=== PATIENT | male | born 1990 | race African-American/Black ===

== ENCOUNTER 2019-05-22 07:27 | Emergency (ER) | payer SELFPAY ==
[~2019-05-22] VITALS: Ht 190.5 cm; Wt 64.0 kg
[2019-05-22] MEDS ORDERED: SODIUM CHLORIDE 0.9% 1,000 ML IV ONE ×2 (08:00→10:15)
[2019-05-22 08:15] LABS: Hematocrit 47.4 % (41.0-53.0); Hemoglobin 16.4 g/dL (13.5-17.5); Mean Corpuscular Hemoglobin 31.3 pg (28.0-32.0); Mean Corpuscular Hgb Conc. 34.6 g/dL (32.0-36.0); Mean Corpuscular Volume 90.6 fL (80.0-100.0); Platelet Count (auto) 216 10^3/uL (140-450); Red Blood Cells 5.23 10^6/uL (4.5-5.90); Red Cell Distribution Width 13.3 % (11.8-14.3); White Blood Cell 5.8 10^3/uL (4.4-10.8)
[2019-05-22 08:26] LABS: Basophils % (manual) 0 (0.0-2.0); Blast Cells 0; Metamyelocytes % 0; Myelocytes % 0; Promyelocytes % 0; Reactive Lymphocytes 0
[2019-05-22 08:28] LABS: Albumin 3.1 g/dL (3.4-5.0); BUN/Creatinine Ratio 18.3; Calcium 8.8 mg/dL (8.5-10.1); Potassium 3.3 mmol/L (3.5-5.1)
[2019-05-22 08:30] LABS: Bilirubin, Total 0.6 mg/dL (0.2-1.0); Total Protein 8.1 g/dL (6.4-8.2)
[2019-05-22] MEDS ORDERED: DIPHENOXYLATE W/ATROPINE 2.5 MG TAB PO ONE (08:30)
[2019-05-22] MEDS ORDERED: cefTRIAXone 1GM/50ML D5W 50 ML IV ONE (09:15)
[2019-05-22] MEDS ORDERED: POTASSIUM EFFERVESENT TAB 25 MEQ PO ONE (09:15)
[2019-05-22 11:13] LABS: Band Neutrophils % (manual) 4; Eosinophils % (manual) 1 (0-7); Lymphocytes % (manual) 16 (10.0-50.0); Monocytes % (manual) 12 (0-12)
[2019-05-22 11:31] LABS: Urine Bacteria NONE SEEN /hpf (None Seen); Urine Blood TRACE /uL (Negative); Urine Hyaline Cast FEW /lpf (0 - 2); Urine Specific Gravity 1.017 (1.001-1.035); Urine WBC 4 /hpf (0 - 3)
[2019-05-22 11:45] LABS: Alcohol, Urine < 3.0 mg/dL (0-5); Amphetamine Screen, Urine NEGATIVE (NEGATIVE); Barbiturate Scree,Urine NEGATIVE (NEGATIVE); Benzodiazephine Screen, Urine NEGATIVE (NEGATIVE); Cannabinoid Screen, Urine NEGATIVE (NEGATIVE); Cocaine Screen, Urine NEGATIVE (NEGATIVE); Opiate Scree,Urine NEGATIVE (NEGATIVE); Phencyclidine Screen, Urine NEGATIVE (NEGATIVE)
[2019-05-22 12:46] VITALS: BP 99/52
== END 2019-05-22 13:15 | disposition home or self-care (01) ==
LOC: ER 07:27
DX: E87.6 Hypokalemia (principal); E87.1 Hypo-osmolality and hyponatremia; R19.7 Diarrhea, unspecified
CPT/HCPCS: 36415; 71046; 80053; 80307; 81001; 85007; 85027; 87491; 87591; 96361; 96365; 99284; J0696; J7030

== ENCOUNTER 2023-05-15 09:04 | Inpatient (IN) | payer MEDICAID ==
[~2023-05-15] VITALS: Ht 182.9 cm; Wt 80.5 kg
[2023-05-15] MEDS ORDERED: HALOPERIDOL LACTATE 5 MG/ML INJ VIAL ONE (09:13)
[2023-05-15] MEDS ORDERED: diphenhdrAMINE HCL 50 MG/1 ML VL ONE (09:13)
[2023-05-15] MEDS ORDERED: LORazepam 2MG/ML-1ML VIAL ONE (09:13)
[2023-05-15] MEDS ORDERED: HALOPERIDOL LACTATE 5 MG/ML INJ VIAL IM ONE (09:15)
[2023-05-15] MEDS ORDERED: LORazepam 2MG/ML-1ML VIAL IM ONE ×2 (09:15→13:45)
[2023-05-15] MEDS ORDERED: DICYCLOMINE HCL (10MG/ML) 2 ML AMPULE IM ONE (09:15)
[2023-05-15] MEDS ORDERED: diphenhdrAMINE HCL 50 MG/1 ML VL IM ONE (09:45)
[2023-05-15 10:14] LABS: Basophils # (auto) 0 10 ^3/uL (0-0.2); Basophils % (auto) 0.3 % (0.0-2.0); Eosinophils # (auto) 0 10 ^3/uL (0-0.8); Eosinophils % (auto) 0.2 % (0.0-7.0); Hematocrit 41.7 % (41.0-53.0); Hemoglobin 13.9 g/dL (13.5-17.5); Lymphocytes # (auto) 1.4 10 ^3/uL (0.4-5.4); Lymphocytes % (auto) 13.1 % (10.0-50.0); Mean Corpuscular Hemoglobin 31.2 pg (28.0-32.0); Mean Corpuscular Hgb Conc. 33.3 g/dL (32.0-36.0); Mean Corpuscular Volume 93.6 fL (80.0-100.0); Monocytes # (auto) 0.6 10 ^3/uL (0-1.3); Monocytes % (auto) 5.6 % (0.0-12.0); Neutrophils # (auto) 8.6 10 ^3/uL (1.6-8.6); Neutrophils % (auto) 80.8 % (37.0-80.0); Nucleated Red Blood Cells % 0.1 %; Red Blood Cells 4.46 10^6/uL (4.5-5.90); White Blood Cell 10.6 10^3/uL (4.4-10.8)
[2023-05-15 10:24] LABS: Urine Bacteria MOD /hpf (None Seen); Urine Blood TRACE /uL (Negative); Urine Clarity Clear (Clear); Urine Color Yellow (Yellow); Urine Hyaline Cast FEW /lpf (0 - 2); Urine Mucus FEW (None Seen); Urine Protein, UAD 1+ (Negative); Urine Specific Gravity 1.031 (1.001-1.035); Urine Sperm PRESENT /hpf (None Seen); Urine WBC 9 /hpf (0 - 3)
[2023-05-15 10:27] LABS: Acetaminophen < 2.0 ug/mL (10-30); Albumin 4.7 g/dL (3.4-5.0); Anion Gap 12 (5-15); Blood Urea Nitrogen 23 mg/dL (7-18); Calcium 9.6 mg/dL (8.5-10.1); Carbon Dioxide 22 mmol/L (21-32); Chloride 113 mmol/L (98-107); Glucose 83 mg/dL (74-106); Magnesium 2.9 mg/dL (1.6-2.6); Potassium 3.8 mmol/L (3.5-5.1); Salicylate < 1.7 mg/dL (2.8-20.0); Sodium 147 mmol/L (136-145)
[2023-05-15 10:32] LABS: Alanine Aminotransferase 167 U/L (16-61); Alkaline Phosphatase 59 U/L (45-117); Aspartate Aminotransferase 314 U/L (15-37); BUN/Creatinine Ratio 15.9 (10.0-20.0); Bilirubin, Total 1.2 mg/dL (0.2-1.0); Blood Alcohol < 3.0 mg/dL (<10); GFR African American 73 mL/min; GFR Non-African American 61 mL/min; Total Protein 8.3 g/dL (6.4-8.2)
[2023-05-15 10:48] LABS: Alcohol, Urine < 3.0 mg/dL (0-10); Amphetamine Screen, Urine POSITIVE (NEGATIVE); Barbiturate Scree,Urine NEGATIVE (NEGATIVE); Benzodiazephine Screen, Urine NEGATIVE (NEGATIVE); Cannabinoid Screen, Urine NEGATIVE (NEGATIVE)
[2023-05-15 11:04] LABS: Cocaine Screen, Urine NEGATIVE (NEGATIVE); Opiate Scree,Urine NEGATIVE (NEGATIVE); Phencyclidine Screen, Urine NEGATIVE (NEGATIVE)
[2023-05-15] MEDS ORDERED: SODIUM CHLORIDE 0.9% 1,000 ML IVB ONE (12:45)
[2023-05-15 12:49] VITALS: PULSE 105; RESP 22; O2SAT 96
[2023-05-15] MEDS ORDERED: LORazepam 2MG/ML-1ML VIAL IV ONE ×2 (13:00→15:00)
[2023-05-15] MEDS ORDERED: NITROGLYCERIN 0.4 MG SL TAB SL PRN (13:45)
[2023-05-15] MEDS ORDERED: SODIUM CHLORIDE 0.9% 1,000 ML IV ONE (13:45)
[2023-05-15] MEDS ORDERED: MORPHINE SULFATE INJ 2 MG/ml SYRG IV PRN ×2 (13:45→19:15)
[2023-05-15] MEDS ORDERED: hydrALAZINE HCL 20 MG/ML VL IV PRN (13:45)
[2023-05-15] MEDS ORDERED: THIAMINE 100mg/ml INJ (200mg/2ml VIAL) IM ONE (13:45)
[2023-05-15] MEDS ORDERED: HALOPERIDOL LACTATE 5 MG/ML INJ VIAL IM PRN (14:00)
[2023-05-15] MEDS ORDERED: PANTOPRAZOLE 40 MG/10 ML VIAL INJ IV ONE (16:15)
[2023-05-15] MEDS ORDERED: LORazepam 2MG/ML-1ML VIAL IV PRN (18:00)
[2023-05-15] MEDS: SODIUM CHLORIDE 0.9% 1,000 ML IV SCH (18:07)
[2023-05-15 18:40] LABS: Albumin 3.8 g/dL (3.4-5.0); BUN/Creatinine Ratio 21.8 (10.0-20.0); Potassium 4.1 mmol/L (3.5-5.1)
[2023-05-15 18:42] LABS: Bilirubin, Total 0.8 mg/dL (0.2-1.0); Total Protein 6.6 g/dL (6.4-8.2)
[2023-05-15 18:43] LABS: INR 1.05 (0.9-1.15); Partial Thromboplastin Time 25.8 SEC (24.5-34.5)
[2023-05-15 20:02] VITALS: PULSE 93; RESP 16; O2SAT 99
[2023-05-16] MEDS: SODIUM CHLORIDE 0.9% 1,000 ML IV SCH ×4 (02:20→21:11)
[2023-05-16 05:00] LABS: Basophils # (auto) 0 10 ^3/uL (0-0.2); Basophils % (auto) 0.4 % (0.0-2.0); Eosinophils # (auto) 0.2 10 ^3/uL (0-0.8); Eosinophils % (auto) 1.8 % (0.0-7.0); Hematocrit 38.5 % (41.0-53.0); Lymphocytes # (auto) 2.2 10 ^3/uL (0.4-5.4); Lymphocytes % (auto) 24.9 % (10.0-50.0); Mean Corpuscular Hgb Conc. 33.7 g/dL (32.0-36.0); Mean Corpuscular Volume 94.8 fL (80.0-100.0); Monocytes # (auto) 0.7 10 ^3/uL (0-1.3); Neutrophils # (auto) 5.7 10 ^3/uL (1.6-8.6); Neutrophils % (auto) 64.9 % (37.0-80.0); Nucleated Red Blood Cells % 0.1 %; Red Blood Cells 4.06 10^6/uL (4.5-5.90); Red Cell Distribution Width 13.4 % (11.8-14.3); White Blood Cell 8.8 10^3/uL (4.4-10.8)
[2023-05-16 05:20] LABS: Potassium 3.5 mmol/L (3.5-5.1)
[2023-05-16 05:28] LABS: Albumin 3.3 g/dL (3.4-5.0); BUN/Creatinine Ratio 19.1 (10.0-20.0); Bilirubin, Total 0.8 mg/dL (0.2-1.0); Calcium 7.9 mg/dL (8.5-10.1); Total Protein 6.3 g/dL (6.4-8.2)
[2023-05-16 07:25] VITALS: PULSE 86; RESP 13; O2SAT 99
[2023-05-16] MEDS: PANTOPRAZOLE 40 MG/10 ML VIAL INJ IV SCH (10:15)
[2023-05-16 13:03] LABS: Free T4 (Free Thyroxine) 1.31 ng/dL (0.89-1.76); T3 Total 0.76 ng/mL (0.60-1.81)
[2023-05-16 13:04] LABS: Free T3 2.82 pg/mL (2.3-4.2)
[2023-05-16 13:30] LABS: Hepatitis A Ab IgM Negative; Hepatitis B Core IgM Negative
[2023-05-16 13:31] LABS: Hepatitis B Surface Antigen Negative (Negative)
[2023-05-16 13:32] LABS: Hepatitis C Antibody Negative (Negative)
[2023-05-16 14:48] VITALS: BP 112/69; PULSE 79; RESP 19; TEMP 98.1; O2SAT 99
[2023-05-16] MEDS ORDERED: DARU1TAB3 PO (14:56)
[2023-05-16] MEDS ORDERED: FOLI-88 PO (14:56)
[2023-05-16] MEDS ORDERED: DOXE10CA34 PO (14:56)
[2023-05-16] MEDS ORDERED: FLUT50SP NAS (15:20)
[2023-05-16 15:59] VITALS: BP 112/69; PULSE 79; RESP 19; TEMP 98.1; O2SAT 99
[2023-05-16 20:00] VITALS: PULSE 90; RESP 20; O2SAT 100
[2023-05-16 21:50] VITALS: BP 118/63; PULSE 98; RESP 20; TEMP 98.7; O2SAT 100
[2023-05-16] MEDS ORDERED: TEMAZEPAM 15 MG CAP PO ONE (22:30)
[2023-05-17] VITALS (7 sets, daily range): BP systolic 100–115; BP diastolic 48–75; PULSE 58–94; RESP 16–20; TEMP 97.3–98.3; O2SAT 95–100
[2023-05-17] MEDS: SODIUM CHLORIDE 0.9% 1,000 ML IV SCH ×5 (02:00→22:00)
[2023-05-17 07:04] LABS: Potassium 3.4 mmol/L (3.5-5.1)
[2023-05-17 07:05] LABS: Basophils # (auto) 0 10 ^3/uL (0-0.2); Basophils % (auto) 0.4 % (0.0-2.0); Eosinophils # (auto) 0.2 10 ^3/uL (0-0.8); Eosinophils % (auto) 2.6 % (0.0-7.0); Hematocrit 36.7 % (41.0-53.0); Hemoglobin 12.4 g/dL (13.5-17.5); Lymphocytes # (auto) 2.2 10 ^3/uL (0.4-5.4); Lymphocytes % (auto) 37.3 % (10.0-50.0); Mean Corpuscular Hemoglobin 31.6 pg (28.0-32.0); Mean Corpuscular Hgb Conc. 33.8 g/dL (32.0-36.0); Mean Corpuscular Volume 93.4 fL (80.0-100.0); Monocytes # (auto) 0.5 10 ^3/uL (0-1.3); Monocytes % (auto) 7.7 % (0.0-12.0); Red Blood Cells 3.93 10^6/uL (4.5-5.90); Red Cell Distribution Width 13.1 % (11.8-14.3); White Blood Cell 5.8 10^3/uL (4.4-10.8)
[2023-05-17 07:14] LABS: BUN/Creatinine Ratio 13.8 (10.0-20.0); Bilirubin, Total 0.4 mg/dL (0.2-1.0); Calcium 7.9 mg/dL (8.5-10.1); Total Protein 5.5 g/dL (6.4-8.2)
[2023-05-17 07:23] LABS: Albumin 2.8 g/dL (3.4-5.0)
[2023-05-17] MEDS ORDERED: POTASSIUM CHL 20 Meq TABLET PO ONE (07:45)
[2023-05-17] MEDS: PANTOPRAZOLE 40 MG/10 ML VIAL INJ IV SCH (10:55)
[2023-05-18] VITALS (7 sets, daily range): BP systolic 106–129; BP diastolic 65–71; PULSE 66–78; RESP 16–19; TEMP 97.6–98.5; O2SAT 93–98
[2023-05-18] MEDS: SODIUM CHLORIDE 0.9% 1,000 ML IV SCH (03:00)
[2023-05-18 08:02] LABS: Potassium 4.3 mmol/L (3.5-5.1)
[2023-05-18 08:13] LABS: Albumin 3.4 g/dL (3.4-5.0); BUN/Creatinine Ratio 12.1 (10.0-20.0); Bilirubin, Total 0.3 mg/dL (0.2-1.0); Calcium 8.5 mg/dL (8.5-10.1); Total Protein 6.1 g/dL (6.4-8.2)
[2023-05-18] MEDS: PANTOPRAZOLE 40 MG TAB PO SCH (21:20)
[2023-05-19] VITALS (7 sets, daily range): BP systolic 103–123; BP diastolic 51–73; PULSE 72–95; RESP 16–20; TEMP 97.4–98.5; O2SAT 94–100
[2023-05-19 04:50] LABS: Basophils # (auto) 0 10 ^3/uL (0-0.2); Basophils % (auto) 0.5 % (0.0-2.0); Eosinophils # (auto) 0.1 10 ^3/uL (0-0.8); Eosinophils % (auto) 2.4 % (0.0-7.0); Hematocrit 41.6 % (41.0-53.0); Hemoglobin 14.1 g/dL (13.5-17.5); Lymphocytes # (auto) 2.6 10 ^3/uL (0.4-5.4); Lymphocytes % (auto) 48.6 % (10.0-50.0); Mean Corpuscular Hemoglobin 31.8 pg (28.0-32.0); Mean Corpuscular Hgb Conc. 33.8 g/dL (32.0-36.0); Mean Corpuscular Volume 94.1 fL (80.0-100.0); Monocytes # (auto) 0.5 10 ^3/uL (0-1.3); Monocytes % (auto) 9.3 % (0.0-12.0); Neutrophils # (auto) 2.1 10 ^3/uL (1.6-8.6); Neutrophils % (auto) 39.2 % (37.0-80.0); Nucleated Red Blood Cells % 0.2 %; Red Blood Cells 4.42 10^6/uL (4.5-5.90); Red Cell Distribution Width 13.1 % (11.8-14.3); White Blood Cell 5.4 10^3/uL (4.4-10.8)
[2023-05-19 04:58] LABS: Albumin 3.5 g/dL (3.4-5.0); Calcium 8.7 mg/dL (8.5-10.1); Potassium 4.1 mmol/L (3.5-5.1)
[2023-05-19 05:14] LABS: BUN/Creatinine Ratio 12.2 (10.0-20.0); Bilirubin, Total 0.3 mg/dL (0.2-1.0)
[2023-05-19] MEDS: PANTOPRAZOLE 40 MG TAB PO SCH ×2 (09:21→21:06)
[2023-05-19] MEDS ORDERED: DOXEPIN PO PRN (22:00)
[2023-05-19] MEDS ORDERED: DARU1TAB3 PO (23:40)
[2023-05-20] VITALS (8 sets, daily range): BP systolic 101–161; BP diastolic 48–107; PULSE 63–89; RESP 17–22; TEMP 97.5–98.2; O2SAT 96–100
[2023-05-20 06:44] LABS: Basophils # (auto) 0 10 ^3/uL (0-0.2); Basophils % (auto) 0.6 % (0.0-2.0); Eosinophils # (auto) 0.1 10 ^3/uL (0-0.8); Hematocrit 41.5 % (41.0-53.0); Hemoglobin 14.1 g/dL (13.5-17.5); Lymphocytes # (auto) 2.2 10 ^3/uL (0.4-5.4); Lymphocytes % (auto) 46.6 % (10.0-50.0); Mean Corpuscular Volume 94.1 fL (80.0-100.0); Monocytes # (auto) 0.5 10 ^3/uL (0-1.3); Monocytes % (auto) 10.3 % (0.0-12.0); Neutrophils # (auto) 1.9 10 ^3/uL (1.6-8.6); Neutrophils % (auto) 40.5 % (37.0-80.0); Red Blood Cells 4.41 10^6/uL (4.5-5.90); White Blood Cell 4.6 10^3/uL (4.4-10.8)
[2023-05-20 07:00] LABS: Potassium 4.6 mmol/L (3.5-5.1)
[2023-05-20 07:13] LABS: Albumin 3.6 g/dL (3.4-5.0); BUN/Creatinine Ratio 14.6 (10.0-20.0); Bilirubin, Total 0.2 mg/dL (0.2-1.0); Total Protein 6.9 g/dL (6.4-8.2)
[2023-05-20] MEDS: PANTOPRAZOLE 40 MG TAB PO SCH ×2 (10:00→21:25)
[2023-05-20] MEDS: [UNRECOGNIZED DRUG - OTHER] PO SCH (10:00)
[2023-05-20] MEDS ORDERED: DARU1TAB3 PO ×2 (11:31→16:13)
[2023-05-21 05:00] VITALS: BP 123/65; PULSE 83; RESP 20; TEMP 97.8; O2SAT 98
[2023-05-21 09:00] VITALS: BP 97/54; PULSE 95; RESP 20; TEMP 97.4; O2SAT 100
[2023-05-21] MEDS: PANTOPRAZOLE 40 MG TAB PO SCH (09:57)
[2023-05-21] MEDS: [UNRECOGNIZED DRUG - OTHER] PO SCH (10:00)
[2023-05-21 13:00] VITALS: BP 101/54; PULSE 90; RESP 18; TEMP 98.6; O2SAT 99
== END 2023-05-21 15:19 | disposition home or self-care (01) | DRG 892 ==
LOC: EDUNIT# 09:04 → ER 09:04 → EDBD 09:04 → TELE 13:39 → TELE-WESTW 05-16 14:33 → WEST WING 05-18 00:02
PROVIDERS: ADMIT Internal Medicine; ATTEND Student in an Organized Health Care Education/Training Program
DX: G92.8 Other toxic encephalopathy (principal); B20 Human immunodeficiency virus [HIV] disease; N17.0 Acute kidney failure with tubular necrosis; M62.82 Rhabdomyolysis; R74.01 Elevation of levels of liver transaminase levels; E07.81 Sick-euthyroid syndrome; F15.129 Other stimulant abuse with intoxication, unspecified
CPT/HCPCS: 36415; 70450; 70551; 71045; 76700; 80053; 80074; 80307; 80320; 80329; 81001; 82550; 83735; 83880; 84439; 84443; 84480; 84481; 84484; 85025; 85379; 85610; 85730; 86360; 93005; 93306; 96372; C9113; G0378